=== PATIENT | female | born 1955 | race African-American/Black ===

== ENCOUNTER 2017-03-11 09:34 | Emergency (ER) | payer OTHER ==
[2017-03-11 09:42] VITALS: TEMP 98; BMI 37.1
[2017-03-11] MEDS ORDERED: KETOROLAC TROMETHAMINE 30 MG/1 ML VIAL IVPUSH ONE (10:07)
--- NOTE | 2017-03-11 10:16 | PDOC ---
History of Present Illness - General Chief Complaint: Pain Stated Complaint: BACK PAIN Time Seen by Provider: 03/11/17 09:50 History Source: Patient - History of Present Illness Timing/Duration: reports: getting worse Quality: reports: severe Abdominal Pain Onset Location: reports: flank Past History - Past Medical History Allergies/Adverse Reactions: Allergies Allergy/AdvReac Type Severity Reaction Status Date / Time No Known Allergies Allergy Verified 03/11/17 09:42 Home Medications: Ambulatory Orders Amlodipine Besylate 10 mg PO DAILY 03/11/17 Aspirin [Ecotrin] 81 mg PO DAILY 03/11/17 Ergocalciferol (Vitamin D2) [Vitamin D2] 50,000 unit PO WEEKLY 03/11/17 Lidocaine 5% Patch [Lidoderm Patch -] 1 patch TP DAILY #7 patch 03/11/17 Meloxicam 7.5 mg PO DAILY 03/11/17 Tramadol HCl 50 mg PO Q6H #20 tablet MDD 200mg 03/11/17 HTN: Yes Hypercholesterolemia: Yes - Surgical History Abdominal Surgery: Yes (HERNIA) - Psycho/Social/Smoking Cessation Hx Anxiety: No Suicidal Ideation: No Smoking History: Former smoker Have you smoked in the past 12 months: No If you are a former smoker, when did you quit?: 14 YRS Information on smoking cessation initiated: No Hx Alcohol Use: No Drug/Substance Use Hx: No Substance Use Type: None Review of Systems - Review of Systems Constitutional: No: Chills, Fever, Malaise, Weakness, Unintentional Wgt. Loss ABD/GI: No: Blood Streaked Bowels, Constipated, Diarrhea, Nausea, Rectal Bleeding, Vomiting : Yes: Flank Pain. No: Burning, Dysuria, Discharge, Frequency, Hematuria Musculoskeletal: Yes: Back Pain *Physical Exam - Vital Signs Last Vital Signs Temp Pulse Resp BP Pulse Ox 98.0 F 78 18 119/91 98 03/11/17 09:37 03/11/17 09:37 03/11/17 09:37 03/11/17 09:37 03/11/17 09:37 - Physical Exam Comments: 03/11/17 10:16 appears uncomfortable General Appearance: Yes: Appropriately Dressed HEENT: positive: Normal Voice Neck: positive: Supple Respiratory/Chest: negative: Respiratory Distress Gastrointestinal/Abdominal: positive: Normal Bowel Sounds, Soft, Other ( tenderness to RLQ/flank/lower back, no CVAT). negative: Distended, Guarding, Rebound Musculoskeletal: negative: CVA Tenderness Extremity: positive: Normal Inspection Integumentary: positive: Dry, Warm Neurologic: positive: Fully Oriented, Alert, Normal Mood/Affect ED Treatment Course - LABORATORY CBC & Chemistry Diagram: 03/11/17 10:20 03/11/17 10:20 - RADIOLOGY Radiology Studies Ordered: Category Date Time Status HIP & PELVIS-RIGHT [RAD] Stat Radiology 03/11/17 10:07 Ordered Medical Decision Making - Medical Decision Making 03/11/17 10:12 61-year-old female, history of hypertension, HLD, obesity, here with flank pain. Patient reports right flank pain 1 month, describes as sharp, constant and worse with any movement. Finds that standing and slightly bent over improves pain. States her PMD sent her for an x-ray of her "right side" a week or 2 ago but does not know results. Here today because pain acutely worsened yesterday. On meloxicam and states she has been "doubling meds" with no relief. Denies dysuria, hematuria, urinary frequency, nausea, vomiting, fever or chills, change in bowel movements or unexplained weight loss. No recent trauma. No h/o renal stone See exam R flank pain x 1 month In mild discomfort but stable w/ poorly localized tto R side of lower abd, symptoms possible MSK vs vs intra-abd -pain control -labs/ua -Hip film -consider CT 03/11/17 11:01 03/11/17 11:02 03/11/17 13:[address] a/p unremarkable. Hip film w/ degenerative changes. pt continues to c/o severe pain and appears uncomfortable. Will continue to manage pain and reassess 03/11/17 16:48 Pt reports sig improvement in pain and able to ambulate. Stable for dc w/ PMD f/ u *DC/Admit/Observation/Transfer Diagnosis at time of Disposition: Flank pain - Discharge Dispostion Disposition: HOME Condition at time of disposition: Improved - Prescriptions Prescriptions: Lidocaine 5% Patch [Lidoderm Patch -] 1 patch TP DAILY #7 patch Tramadol HCl 50 mg PO Q6H #20 tablet MDD 200mg - Patient Instructions Additional Instructions: The source of your pain is unclear at this time as your labs and cat scan were normal. You did have some blood in your urine and will need to follow up with your PMD for further evaluation Take medications as directed
[2017-03-11] MEDS ORDERED: KETOROLAC TROMETHAMINE 30 MG/1 ML VIAL ONE (10:24)
[2017-03-11 10:32] LABS: BASOPHIL 0.4 % (0-2.0); EOSINOPHIL 0.5 % (0-4.5); MCHC 33.7 g/dl (32.0-36.0); MEAN PLT VOLUME 8.3 fl (7.5-11.1); PLATELET COUNT 262 K/MM3 (134-434); RDW 14.1 % (11.6-15.6); WHITE BLOOD COUNT 7.2 K/mm3 (4.0-10.0)
[2017-03-11 10:52] LABS: ANION GAP 8 (8-16); BILIRUBIN,TOTAL 0.8 mg/dL (0.2-1.0); CALCIUM 8.7 mg/dL (8.5-10.1); CO2 28 mmol/L (21-32); CREATININE 0.8 mg/dL (0.55-1.02); GLUCOSE,RANDOM 112 mg/dL (74-106); SGOT/AST 23 U/L (15-37); SGPT/ALT 21 U/L (12-78); TOT PROT 7.7 g/dl (6.4-8.2)
[2017-03-11 10:53] LABS: ALK PHOS 69 U/L (45-117)
[2017-03-11 11:17] LABS: URINE APPEARANCE CLEAR; URINE BILIRUBIN NEGATIVE (NEGATIVE); URINE BLOOD 2+ (NEGATIVE); URINE COLOR LTYELLOW; URINE GLUCOSE (UA) NEGATIVE (NEGATIVE); URINE KETONE NEGATIVE (NEGATIVE); URINE LEUK ESTERASE NEGATIVE (NEGATIVE); URINE NITRITE NEGATIVE (NEGATIVE); URINE PROTEIN 2+ (NEGATIVE); URINE UROBILINOGEN NEGATIVE E.U./dl (0.2-1.0)
[2017-03-11 11:19] LABS: URINE MUCUS RARE; URINE RBC 37 /hpf (0-3); URINE WBC 3 /hpf (3-5)
[2017-03-11] MEDS ORDERED: traMADol HCL 50 MG TABLET PO ONE (13:28)
[2017-03-11] MEDS ORDERED: LIDOCAINE 5% TOPICAL PATCH TP ONE (13:29)
[2017-03-11] MEDS ORDERED: traMADol HCL 50 MG TABLET ONE (13:38)
[2017-03-11 14:18] VITALS: BP 153/88; PULSE 68
== END 2017-03-11 17:10 | disposition home or self-care (01) ==
LOC: JER 09:34
PROC: 3E0333Z Introduction of Anti-inflammatory into Peripheral Vein, Percutaneous Approach (ICD-10-PCS; principal; 2017-03-11)
DX: R10.31 Right lower quadrant pain (principal); I10 Essential (primary) hypertension; E78.00 Pure hypercholesterolemia, unspecified
CPT/HCPCS: 36415; 73523-TC; 74177-TC; 80053; 81003; 81015; 85025; 99284-25

== ENCOUNTER 2017-07-08 11:42 | Emergency (ER) | payer OTHER ==
[2017-07-08 11:45] VITALS: BP 164/93; PULSE 76; TEMP 98.3; BMI 35.2
--- NOTE | 2017-07-08 13:01 | PDOC ---
History of Present Illness - General Chief Complaint: Injury Stated Complaint: LT TOE INJURY Time Seen by Provider: 07/08/17 12:18 History Source: Patient Exam Limitations: No Limitations - History of Present Illness Initial Comments: 07/08/17 12:55 61 yr female with injury to left 5th toe yesterday stubbed her toe on the dresser. pt has pain and bruising. Occurred: reports: yesterday Severity: Yes: moderate Lower Extremity Pain Location: left: 5th toe Past History - Past Medical History Allergies/Adverse Reactions: Allergies Allergy/AdvReac Type Severity Reaction Status Date / Time No Known Allergies Allergy Verified 07/08/17 11:45 Home Medications: Ambulatory Orders Amlodipine Besylate 10 mg PO DAILY 03/11/17 Aspirin [Ecotrin] 81 mg PO DAILY 03/11/17 Ergocalciferol (Vitamin D2) [Vitamin D2] 50,000 unit PO WEEKLY 03/11/17 Meloxicam 7.5 mg PO DAILY 03/11/17 HTN: Yes Hypercholesterolemia: Yes - Surgical History Abdominal Surgery: Yes (HERNIA) - Suicide/Smoking/Psychosocial Hx Smoking History: Former smoker Have you smoked in the past 12 months: No If you are a former smoker, when did you quit?: 15 YRS Information on smoking cessation initiated: No Hx Alcohol Use: No Drug/Substance Use Hx: No Substance Use Type: None Review of Systems - Review of Systems Able to Perform ROS?: Yes Is the patient limited [place] proficient: No Constitutional: No: Symptoms Reported HEENTM: No: Symptoms Reported Respiratory: No: Symptoms reported Cardiac (ROS): No: Symptoms Reported ABD/GI: No: Symptoms Reported : No: Symptoms Reported Musculoskeletal: Yes: Symptoms Reported *Physical Exam - Vital Signs Last Vital Signs Temp Pulse Resp BP Pulse Ox 98.3 F 76 20 164/93 99 07/08/17 11:42 07/08/17 11:42 07/08/17 11:42 07/08/17 11:42 07/08/17 11:42 - Physical Exam General Appearance: Yes: Nourished, Appropriately Dressed HEENT: positive: EOMI, GLO Neck: positive: Supple Respiratory/Chest: positive: Lungs Clear, Normal Breath Sounds Cardiovascular: positive: Regular Rhythm, Regular Rate Extremity: positive: Normal Capillary Refill, Other (bruising to the left 5th toe ) Integumentary: positive: Normal Color, Dry, Warm Neurologic: positive: Fully Oriented, Alert, Normal Mood/Affect, Normal Response , Motor Strength 5/5 Procedures - Splinting Progress: 07/08/17 12:59 hard sole shoe , kareen taped fifth and fourth toes ED Treatment Course - RADIOLOGY Radiology Studies Ordered: Category Date Time Status TOE(S) LEFT [RAD] Stat Radiology 07/08/17 12:21 Taken Medical Decision Making - Medical Decision Making 07/08/17 12:56 cc: 5th toe injury will xray to r/o fracture 07/08/17 12:57 will kareen tape the toe and give hard sole shoe dc inst given to the patient verbally and all questions asked and answered pt agrees with the pt to follow up with the assistant director of admissions *DC/Admit/Observation/Transfer Diagnosis at time of Disposition: Toe fracture, left Qualifiers: Encounter type: initial encounter Toe: lesser toe Fracture type: closed Phalanx : middle Fracture alignment: displaced Qualified Code(s): S92.522A - Displaced fracture of middle phalanx of left lesser toe(s), initial encounter for closed fracture; S92.522A - Displaced fracture of middle phalanx of left lesser toe(s) , initial encounter for closed fracture - Discharge Dispostion Disposition: HOME Condition at time of disposition: Good - Referrals Referrals: Kian Duque MD [Staff Physician] - - Patient Instructions Additional Instructions: ice the toe every 2hrs for 15 minutes take motrin for pain as directed (advil, ibuprofen) keep toe kareen taped and hard sole shoe follow with the assistant director of admissions next week
== END 2017-07-08 13:07 | disposition home or self-care (01) ==
LOC: JERFT 11:42
DX: S92.522A Displaced fracture of middle phalanx of left lesser toe(s), initial encounter for closed fracture (principal); W22.03XA Walked into furniture, initial encounter; Y93.89 Activity, other specified; Y92.032 Bedroom in apartment as the place of occurrence of the external cause; I10 Essential (primary) hypertension; Z87.891 Personal history of nicotine dependence
CPT/HCPCS: 73660-TC; 99281-25

== ENCOUNTER 2024-02-09 07:47 | Emergency (ER) | payer OTHER ==
[2024-02-09 08:01] VITALS: RESP 18; BMI 37.2
[2024-02-09] MEDS ORDERED: ACETAMINOPHEN 500 MG TABLET (FP) ONE (10:10)
[2024-02-09] MEDS: ACETAMINOPHEN 500 MG TABLET (FP) PO ONE (10:46)
[2024-02-09 12:40] VITALS: BP 159/81; PULSE 82; TEMP 98.1
== END 2024-02-09 12:40 | disposition home or self-care (01) ==
LOC: JER 07:47
DX: R68.84 Jaw pain (principal); Y04.0XXA Assault by unarmed brawl or fight, initial encounter; Y99.0 Civilian activity done for income or pay
CPT/HCPCS: 70450-TC; 70486-TC; 72125-TC; 99284-25